=== PATIENT | male | born 2000 | race Caucasian/White ===

== ENCOUNTER 2022-10-17 13:12 | Emergency (ER) | payer OTHER, SELFPAY ==
--- NOTE | 2022-10-17 13:13 | ED.URI ---
HPI - URI/Sore Throat General Chief Complaint: Upper Respiratory Infection Stated Complaint: SOre Throat Time Seen by Provider: 10/17/22 13:14 Source: patient and RN notes reviewed History of Present Illness HPI Narrative: patient is a 22-year-old male who presents to urgent care with complaints of a sore throat that started Friday with postnasal drainage and congestion. Patient states that symptoms worsened as of yesterday. States he has been using allergy medication and saltwater gargles. Patient denies any fevers, nausea or vomiting. No other acute complaints. Patient has had a positive exposure to his girlfriend. No acute distress noted. Patient aware of the plan of care. Some parts of this dictation were generated by voice recognition software and may contain typographical and/or grammatical inaccuracies. Related Data Allergies Allergy/AdvReac Type Severity Reaction Status Date / Time No Known Allergies Allergy Verified 10/17/22 13:34 Review of Systems Review of Systems: CONSTITUTIONAL: Denies fever, chills, or sweats. EYES: Denies visual changes, redness, or discharge. ENT: Reports postnasal drainage, congestion and sore throat CARDIOVASCULAR: Denies chest pain, palpitations, or edema. RESPIRATORY: Denies cough or dyspnea. GASTROINTESTINAL: Denies abdominal pain, nausea, vomiting, or diarrhea. GENITOURINARY: Denies dysuria or hematuria. SKIN: Denies rash or itching. MUSCULOSKELETAL: Denies back pain, joint pain, or myalgia. All other systems reviewed are negative, except as documented in HPI. PMFSH Comments At the time of my signature, I reviewed and agree with the nursing past medical, surgical, social, and family history. There is no relevant family history pertinent to the patient complaint. Exam Narrative: GENERAL: This is a well-nourished, well-developed patient, in no apparent distress. HEAD: normocephalic, atraumatic. EYES: PERRL. Sclera clear/white. Vision is grossly intact. EARS: External ears normal, auditory canals clear and without drainage, TMs normal without perforation. Hearing grossly intact. NOSE: External nose normal with no obvious nasal discharge, nares without redness, Copious clear rhinorrhea. THROAT: Mucous membranes moist, moderate erythema to posterior pharynx with blistering. Moderate postnasal drainage. NECK: Neck supple, non-tender without lymphadenopathy, masses or thyromegaly. CARDIOVASCULAR: Regular rate and rhythm without murmurs, gallops, or rubs. RESPIRATORY: Clear to auscultation. Breath sounds equal bilaterally. No wheezes, rales, or rhonchi. SKIN: warm, intact with no suspicious lesions or rash, good texture and turgor. NEURO: awake, alert, and oriented to person, place and time. There were no obvious focal neurologic abnormalities. EXTREMITIES: No clubbing, cyanosis, or edema. Course Course Level of Care: Express Care Visit Vital Signs Vital signs: Vital Signs Temperature 99.2 F 10/17/22 13:29 Pulse Rate 107 H 10/17/22 13:29 Respiratory Rate 16 10/17/22 13:29 Blood Pressure 142/73 H 10/17/22 13:29 Pulse Oximetry 98 10/17/22 13:29 Temperature 99.2 F 10/17/22 13:29 Pulse Rate 107 H 10/17/22 13:29 Respiratory Rate 16 10/17/22 13:29 Blood Pressure 142/73 H 10/17/22 13:29 Pulse Oximetry 98 10/17/22 13:29 reviewed- Patient is informed that they may have pre-hypertension or hypertension based on a blood pressure reading in the department. I recommend the patient call the primary care provider listed on their discharge instructions or a physician of their choice this week to arrange follow-up for further evaluation of possible pre-hypertension or hypertension. MDM - URI/Sore Throat MDM Narrative Medical decision making narrative: reviewed lab results with the patient. He is aware that strep swab was positive. Advised him to continue allergy medication as needed as well as Tylenol/ ibuprofen. Complete the oral antibiotic re
[2022-10-17 13:29] VITALS: BP 142/73; PULSE 107; RESP 16; TEMP 37.3; O2SAT 98
== END 2022-10-17 13:39 | disposition home or self-care (01) ==
PROVIDERS: Emergency Provider Nurse Practitioner Family
DX: J02.0 Streptococcal pharyngitis (principal)
CPT/HCPCS: 87880; 99203; G0463

== ENCOUNTER 2022-11-23 18:18 | Emergency (ER) | payer OTHER, SELFPAY ==
[2022-11-23 18:27] VITALS: BP 145/66; PULSE 106; RESP 20; TEMP 37.9; O2SAT 99
--- NOTE | 2022-11-23 19:05 | ED.GENADULT ---
HPI - General Adult General Chief complaint: Upper Respiratory Infection Stated complaint: Fever/Headache/Congestion Source: patient and family Mode of arrival: ambulatory Limitations: no limitations History of Present Illness HPI narrative: Patient presents for evaluation of sick symptoms. Symptoms include sore throat, headache, sinus congestion and drainage, nonproductive cough, hot flashes, chills, body aches. No objective fever or shortness of breath. His had strep about 2 weeks ago. He has been taking tylenol and ibuprofen for his symptoms. He does not smoke. He woke from sleep today with redness to left eye. Denies drainage from the eye. Denies visual disturbance. He used an OTC eye drop for his symptoms. He is not sure whether that particularly helped. Related Data Allergies Allergy/AdvReac Type Severity Reaction Status Date / Time No Known Allergies Allergy Verified 11/23/22 18:55 Review of Systems Review of Systems: CONSTITUTIONAL: He reports hot flashes and chills EYES: Reports redness to the left eye. Denies visual changes,or discharge. ENT: Reports sinus congestion, rhinorrhea, sore throat CARDIOVASCULAR: Denies chest pain, palpitations, or edema. RESPIRATORY: Reports cough. Denies SOB. GASTROINTESTINAL: Denies abdominal pain, nausea, vomiting, or diarrhea. GENITOURINARY: Denies dysuria or hematuria. SKIN: Denies rash or itching. MUSCULOSKELETAL: Reports generalized body aches NEUROLOGIC:Reports headache. Denies numbness, dizziness, or weakness. PSYCHIATRIC: Denies anxiety or depression. [facility] Past Medical History Medical History (Updated 11/23/22 @ 19:24 by Luke Salcido, KMI, ) No pertinent past medical history Surgical History Surgical History No pertinent past surgical history Family History Family History Mother Family history non-contributory Social History Social History Smoking status: Never smoker Substance use: never Living arrangements: with family Gender identity (if verbalized by the patient): Male Sexual Orientation (if Verbalized by the Patient): Straight or Heterosexual Spiritual care concerns: No Exam Narrative: GENERAL: Well-appearing, well-nourished, and in no acute distress. HEAD: Normocephalic, atraumatic. EYES: PERRLA and EOMI. ENT: Nares clear, no rhinorrhea or epistaxis. Mucous membranes moist. Bilateral tonsillar enlargement with erythema and white exudate. Uvula is midline. Bilateral TMs pearly lewis nonbulging NECK: Supple. No adenopathy or masses. No carotid bruits or JVD CHEST: Clear to auscultation. No respiratory distress. No wheezes rales or rhonchi HEART: Regular rate and rhythm. No murmur heard. Normal peripheral pulses. ABDOMEN: Soft, nontender, nondistended, normal active bowel sounds. EXTREMITIES: Normal range of motion. No edema. SKIN: Warm, dry, no rash. NEURO: No focal deficits. Alert and oriented x3. PSYCH: Normal mood and affect. Course Course Emergency Course: This is a 22-year-old male who presented for evaluation of sick symptoms. Influenza was negative. Strep was negative. Clinical suspicion for strep positive given recent exposure and symptomatology. Will treat with amoxicillin. Increase hydration. [id number] agents for symptom management. Follow up primary provider. Go to the ER for difficulty breathing or swelling. Patient agreed with plan care Level of Care: Express Care Visit Vital Signs Vital signs: Vital Signs Temperature 37.9 C H 11/23/22 18:27 Pulse Rate 106 H 11/23/22 18:27 Respiratory Rate 20 11/23/22 18:27 Blood Pressure 145/66 H 11/23/22 18:27 Pulse Oximetry 99 11/23/22 18:27 Oxygen Delivery Room Air 11/23/22 18:27 Temperature 37.9 C H 11/23/22 18:27 Pulse Rate 106 H 11/23/22
== END 2022-11-23 19:32 | disposition home or self-care (01) ==
PROVIDERS: Emergency Provider Nurse Practitioner; PCP Emergency Medicine
DX: J02.9 Acute pharyngitis, unspecified (principal)
CPT/HCPCS: 87081; 87804; 87880; 99213; G0463

== ENCOUNTER 2023-01-13 10:44 | Outpatient (CLI) | payer OTHER, SELFPAY ==
[2023-01-13 19:29] LABS: Alanine Aminotransferase 58 U/L (6-50); Albumin Level 4.8 g/dL (3.5-5.1); Alkaline Phosphatase 79 U/L (38-126); Anion Gap 8 mmol/L (8-16); Aspartate Amino Transferase 55 U/L (17-59); Bilirubin,Total 0.5 mg/dL (0.2-1.3); Blood Urea Nitrogen 11 mg/dL (9-20); Calcium 9.5 mg/dL (8.4-10.2); Carbon Dioxide 31 mmol/L (22-30); Chloride 102 mmol/L (98-107); Cholesterol 198 mg/dL (0-200); Estimated Glomerular Filt Rate > 60; Glucose 86 mg/dL (65-110); HDL Direct 38 mg/dL; Potassium 4.5 mmol/L (3.4-5.0); Sodium 141 mmol/L (137-145); Triglycerides 199 mg/dL (<150)
[2023-01-13 19:41] LABS: LDL Cholesterol Direct 123 mg/dL
[2023-01-13 20:36] LABS: Hemoglobin 15.6 g/dL (14.0-18.0); Mean Corpuscular HGB Conc 32.5 g/dl (32-36); Mean Corpuscular Hemoglobin 28.9 pg (26-34); Mean Corpuscular Volume 88.9 fl (80-100); Mean Platelet Volume 9.3 fl (7.4-10.4); Platelet Count Result 295 k/mm3 (150-375); Red Cell Distribution Width 13.7 % (11.5-14.5); White Blood Count 6.6 K/mm3 (4.5-10.0)
== END 2023-01-13 10:45 | disposition home or self-care (01) ==
PROVIDERS: PCP Family Medicine; Visit Provider Family Medicine
DX: Z00.00 Encounter for general adult medical examination without abnormal findings (principal)
CPT/HCPCS: 36415; 80053; 80061; 85027

== ENCOUNTER 2024-03-22 11:12 | Outpatient (CLI) | payer OTHER, SELFPAY ==
[2024-03-22 19:41] LABS: Alanine Aminotransferase 44 U/L (6-50); Albumin Level 4.6 g/dL (3.5-5.1); Alkaline Phosphatase 63 U/L (38-126); Aspartate Amino Transferase 48 U/L (17-59); Bilirubin,Total 0.5 mg/dL (0.2-1.3); Cholesterol 193 mg/dL (0-200); HDL Direct 41 mg/dL; Triglycerides 137 mg/dL (<150)
[2024-03-22 19:47] LABS: Hemoglobin A1C 5.3 % (<5.7)
[2024-03-22 19:53] LABS: LDL Cholesterol Direct 132 mg/dL
== END 2024-03-22 11:13 | disposition home or self-care (01) ==
PROVIDERS: PCP Nurse Practitioner Adult Health; Visit Provider Family Medicine
DX: Z00.00 Encounter for general adult medical examination without abnormal findings (principal); R74.01 Elevation of levels of liver transaminase levels
CPT/HCPCS: 36415; 80061; 80076; 83036

== ENCOUNTER 2025-03-28 10:01 | Outpatient (CLI) | payer OTHER, SELFPAY ==
--- OUTSIDE RECORDS SUMMARY | 2025-03-28 11:05 | XMS_ITS | Clinical Summary ---
Author Organization [facility] Address [address] [place] [id number] Care Team Providers Care Technical Proposal Writer Name Role Phone Unavailable Primary Care Provider Unavailabl e Immunizations Immunization Administration Dates Next Due INFLUENZA VACCINE QUADRIVALENT 6 MOS UP PF IM Social History Tobacco Use Types Packs/Day Years Used Date Smoking Tobacco: Never Assessed Sex and Gender Information Value Date Recorded Sex Assigned at Not on file Legal Sex Male 3:40 PM CDT Gender Identity Not on file Sexual Orientation Not on file Last Filed Vital Signs Vital Sign Reading Time Taken Comments Blood Pressure 112/70 07/08/2022 9:43 AM CDT Pulse - - Temperature - - Respiratory Rate - - Oxygen Saturation - - Inhaled Oxygen Concentration - - Weight 120.7 kg (266 lb) 07/08/2022 9:43 AM CDT Height 175.3 cm (5' 9) 07/08/2022 9:43 AM CDT Body Mass Index 39.28 07/08/2022 9:43 AM CDT Plan of Treatment Health Maintenance Due Date Last Done Comments HPV VACCINES (1 - Male 3-dose series) 2014 DTAP/TDAP/TD VACCINES (1 - Tdap) 2018 HEPATITIS B VACCINES (1 of 3 - 19+ 3-dose series) 2018 INFLUENZA VACCINE (#1) 2024 07/25/2021, 2018
--- OUTSIDE RECORDS SUMMARY | 2025-03-28 11:05 | XMS_ITS | Clinical Summary ---
Author Organization [facility] Address [address] [phone] Phone Care Team Providers Care Bilingual Secretary Name Role Phone Unavailable Primary Care Provider Unavailabl e Allergies No known active allergies Medications No known medications Active Problems No known active problems Immunizations Immunization Administration Dates Next Due Influenza Vaccine, Quadrivalent, PF 09/06/2019 Family History Medical History Relation Name Comments No Known Problems Father No Known Problems Maternal Grandfather No Known Problems Maternal Grandmother No Known Problems Mother Heart Attack Paternal Grandfather Alzheimer's Disease Paternal Grandmother Dementia Paternal Grandmother No Known Problems Sister Relation Name Status Comments Father Alive Maternal Grandfather Maternal Grandmother Mother Alive Paternal Grandfather Paternal Grandmother Sister Alive Social History Tobacco Use Types Packs/Day Years Used Date Smoking Tobacco: Never Smokeless Tobacco: Never Tobacco Cessation:Counseling Given: Yes Alcohol Use Standard Drinks/Week Comments Never 0 (1 standard drink = 0.6 oz pur e alcohol) AUDIT-C Answer Date Recorded Frequency of Alcohol Consumption Never 07/09/2019 Average Number of Drinks Not on file 019 Frequency of Binge Drinking Not on file 06/21 PHQ-2 Answer Date Recorded PHQ-2 Score 0 09/06/2019 Sexually Active Control Partners Comments Never Female Sex and Gender Information Value Date Recorded Sex Assigned at Not on file Legal Sex Male 12:16 AM CDT Gender Identity Not on file Sexual Orientation Not on file Occupation Industry Job Start Date Job End Date Student Not on file Not on file Not on file Last Filed Vital Signs Vital Sign Reading Time Taken Comments Blood Pressure 120/80 09/06/2019 8:07 AM MEDICAL RECORDS RECEPTIONIST Pulse 68 09/06/2019 8:07 AM MEDICAL RECORDS RECEPTIONIST Temperature 36.5 C (97.7 F) 09/06/2019 8:07 AM MEDICAL RECORDS RECEPTIONIST Respiratory Rate 16 09/06/2019 8:07 AM MEDICAL RECORDS RECEPTIONIST Oxygen Saturation 98% 09/06/2019 8:07 AM MEDICAL RECORDS RECEPTIONIST Inhaled Oxygen Concentration - - Weight 107.4 kg (236 lb 12.8 oz) 09/06/2019 8:07 AM MEDICAL RECORDS RECEPTIONIST Height 175.9 cm (5' 9.25) 09/06/2019 8:07 AM CS T Body Mass Index 34.72 09/06/2019 8:07 AM MEDICAL RECORDS RECEPTIONIST Plan of Treatment Health Maintenance Due Date Last Done Comments Hepatitis C Virus (HCV) Screening 1999 TdaP Immunization 1999 Human Papillomavirus (HPV) Immunization (1 - Male 3-dose series) 2014 Hepatitis B Immunization (1 of 3 - 19+ 3-dose series) 2018 SARS-COV-2 Immunization ( - season) 2024 Influenza Immunization (Seas on Ended) 2025 09/06/2019 Respiratory Syncytial Virus (RSV) Immunization (Adult) (1 - 1-dose 75+ series) 2074 Meningococcal Immunization (ACWY) Aged Out No longer eligible based on patient's age to complete this topic Pneumococcal Immunization Combined Aged Out No longer eligible based on patient's age to complete this topic Rotavirus Immunization Aged Out No lo nger eligible based on patient's age to complete this topic
[2025-03-28 20:22] LABS: Alanine Aminotransferase 46 U/L (6-50); Albumin Level 4.6 g/dL (3.5-5.1); Alkaline Phosphatase 67 U/L (38-126); Anion Gap 10 mmol/L (4-12); Aspartate Amino Transferase 67 U/L (17-59); Bilirubin,Total 0.2 mg/dL (0.2-1.3); Blood Urea Nitrogen 15 mg/dL (9-20); Carbon Dioxide 25 mmol/L (22-30); Chloride 106 mmol/L (98-107); Cholesterol 195 mg/dL (0-200); Estimated Glomerular Filt Rate > 60; Glucose 90 mg/dL (65-110); HDL Direct 37 mg/dL; Sodium 141 mmol/L (137-145); Total Protein 7.7 g/dL (6.3-8.2); Triglycerides 227 mg/dL (<150)
[2025-03-28 20:33] LABS: LDL Cholesterol Direct 112 mg/dL
== END 2025-03-28 10:02 | disposition home or self-care (01) ==
LOC: ANHBWCLAB 10:02
PROVIDERS: PCP Nurse Practitioner Adult Health; Visit Provider Nurse Practitioner Adult Health
DX: Z00.00 Encounter for general adult medical examination without abnormal findings (principal)
CPT/HCPCS: 36415; 80053; 80061